=== PATIENT | female | born 1995 | race Caucasian/White ===

== ENCOUNTER 2017-05-07 16:31 | Emergency (ER) | payer SELFPAY ==
[2017-05-07 16:32] VITALS: BMI 22.8
[2017-05-07 16:51] VITALS: BP 99/75; PULSE 87; RESP 20; TEMP 98; O2SAT 98
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
--- NOTE | 2017-05-08 09:01 | US ---
PROCEDURE: OB Pelvic Ultrasound HISTORY: ABDOMINAL PAIN COMPARISON: None available. FINDINGS: UTERUS: Gestational sac: Single intrauterine gestation in variable presentation. Heart rate: 149 bpm. BPD 2.77 cm corresponding to 15 weeks and 0 days of gestational age. HC 9.45 cm corresponding to 14 weeks and 2 days of gestational age. AC 8.05 cm corresponding to 14 weeks and 3 days of gestational age. FL 1.40 cm corresponding to 14 weeks and 1 day of gestational age. age (Ultrasound estimated): 14 weeks and 3 days Zeynep-gestational hemorrhage: None. Date of delivery (Ultrasound estimated) : 11/02/2017 Placenta is fundal and posterior. CERVIX: Long and closed. No cervical abnormality seen. RIGHT OVARY: Not visualized. LEFT OVARY: Not visualized. FREE FLUID: None. OTHER FINDINGS: None. IMPRESSION: Single live intrauterine fetus in variable presentation with mean gestational age of 14 weeks and 3 days. The estimated date of delivery by ultrasound is 11/02/2017. The ultrasound dates correlates with the clinical dates. Placenta is fundal and posterior.
== END 2017-05-07 17:12 | disposition home or self-care (01) ==
LOC: H.ER 16:31
DX: O26.892 Other specified pregnancy related conditions, second trimester (principal); S80.219A Abrasion, unspecified knee, initial encounter; V01.00XA Pedestrian on foot injured in collision with pedal cycle in nontraffic accident, initial encounter; Y92.410 Unspecified street and highway as the place of occurrence of the external cause; Z3A.14 14 weeks gestation of pregnancy

== ENCOUNTER 2017-08-07 11:23 | Emergency (ER) | payer BC ==
[2017-08-07 12:30] VITALS: BMI 26.9
[2017-08-07] MEDS ORDERED: Lactated Ringer's 1,000 ML IV SCH (12:30)
[2017-08-07 13:23] LABS: BASO % 0.4 % (0.0-2.0); EOS % 0.4 % (0.0-4.0); HEMATOCRIT 36.2 % (34.0-47.0); LYMPH # 1.8 K/uL (1.0-4.3); LYMPH % 15.3 % (20.0-40.0); MEAN CELL VOLUME 94.2 fl (81.0-99.0); MEAN CORPUSCULAR HGB CONC 32.9 g/dL (33.0-37.0); MEAN PLATELET VOLUME 8.9 fl (7.2-11.7); MONO # 0.7 K/uL (0.0-0.8); MONO % 5.6 % (0.0-10.0); NEUT # 9.2 K/uL (1.8-7.0); NEUT % 78.3 % (50.0-75.0); NRBC % 0.1 % (0.0-0.0); RED CELL DISTRIBUTION WIDTH 13.6 % (11.5-14.5); WHITE BLOOD COUNT 11.7 K/uL (4.8-10.8)
[2017-08-07 13:34] LABS: ALB/GLOB RATIO 1.2 (1.0-2.1); ALKALINE PHOSPHATASE 57 U/L (38-126); ALT/SGPT 19 U/L (9-52); AST/SGOT 25 U/L (14-36); BILIRUBIN,TOTAL 0.3 mg/dl (0.2-1.3); BLOOD UREA NITROGEN 9 mg/dl (7-17); CALCIUM 8.8 mg/dL (8.4-10.2); CARBON DIOXIDE 23 mmol/L (22-30); CHLORIDE 105 mmol/L (98-107); GFR AFRICAN-AMERICAN > 60; GLUCOSE,RANDOM 69 mg/dL (65-105); POTASSIUM 3.9 MMOL/L (3.6-5.0); SODIUM 137 mmol/l (132-148); TOTAL PROTEIN 6.7 G/DL (6.3-8.2)
[2017-08-07 15:02] LABS: RBC URINE 1 /hpf (0-3); URINE BACTERIA RARE (<OCC); URINE BILIRUBIN NEGATIVE (NEGATIVE); URINE BLOOD NEGATIVE (NEGATIVE); URINE COLOR STRAW (YELLOW); URINE GLUCOSE (UA) NEG (Normal); URINE KETONE NEGATIVE (NEGATIVE); URINE LEUKOCYTE ESTERASE NEG Leu/uL (Negative); URINE PROTEIN NEGATIVE (NEGATIVE); URINE UROBILINOGEN 0.2-1.0 mg/dL (0.2-1.0); WBC URINE 1 /hpf (0-5)
--- NOTE | 2017-08-07 18:13 | OBHP ---
Datetime: 08/07/2017 13:14 IP Adm Impression: , intrauterine Admit Comment, IP Provider: 22yo g1 edc 1/4 by 7wk us presents @ 27.1wk with c/o dizziness, lighthea dedness and h/a x2 days. Pt states dizziness occurs with change in position from sitting to standing . She states lightheadedness occurs while walking or sitting; denies syncope or palpitations She ra autumn h/a 05/11; states is frontal, nonradiating, relieved with tylenol. She also states h/a is not ass oc with aura or visual disturbance. She denies loc, ctxs, srom or vag bleeding. states ob hx has been unremarkable pmhx _ pshx: denies nkda medic: pnv shx: denies etoh, drugs or tobacco use I: 27.1wk Lightheadedness, H/A, and Dizziness P: cbc, cmp, ua iv hydration proper nutrition d/w pt addendum: s: feels better after receiving IV hydration labs nl Vasovagal Episode p: d/c home f/u with dr estrada as sched'd on thursday Return to hospital with worsening headache, syncopal episode, persistent lightheadedness and dizzi ness. return Extremities - PN: Normal Abdomen - PN: Normal Lungs - PN: Normal Neurologic - PN: Normal HEENT - PN: Normal General - PN: Normal Contraction Comments Provider: no Vital Signs Provider: Reviewed; Within Normal Limits IP Chief Complaint: Other NICHD Variability Prov Fetus A: Moderate 6-25bpm NICHD Accel Fetus A IP Provider: 15X15 FHR Category Provider Fetus A: Category I
[2017-08-07 20:43] VITALS: BP 96/46; PULSE 90; RESP 20; TEMP 97.6; O2SAT 100
== END 2017-08-07 16:42 | disposition home or self-care (01) ==
LOC: H.EROB2 11:23
DX: O26.92 Pregnancy related conditions, unspecified, second trimester (principal); R51 Headache; R42 Dizziness and giddiness; Z3A.27 27 weeks gestation of pregnancy
CPT/HCPCS: 80053; 81003; 85025; 99283; J7120

== ENCOUNTER 2017-08-29 09:47 | Emergency (ER) | payer BC, OTHER ==
[2017-08-29 10:02] VITALS: BMI 27.7
[2017-08-29 10:39] LABS: RBC URINE 2 /hpf (0-3); URINE BACTERIA RARE (<OCC); URINE BILIRUBIN NEGATIVE (NEGATIVE); URINE BLOOD NEGATIVE (NEGATIVE); URINE COLOR YELLOW (YELLOW); URINE GLUCOSE (UA) 50 mg/dL (Normal); URINE KETONE NEGATIVE (NEGATIVE); URINE LEUKOCYTE ESTERASE NEG Leu/uL (Negative); URINE PROTEIN NEGATIVE (NEGATIVE); URINE UROBILINOGEN 0.2-1.0 mg/dL (0.2-1.0); WBC URINE 2 /hpf (0-5)
[2017-08-29 16:22] VITALS: BP 100/56; PULSE 87; RESP 16; TEMP 98.2; O2SAT 100
--- NOTE | 2017-08-30 02:42 | OBHP ---
Datetime: 08/29/2017 10:39 IP Adm Impression: , intrauterine IP Admit Plan: Discharge home Admit Comment, IP Provider: 22 yo F, with single IUP at 29.5 weeks consistent with u/s done at 13w2d, presented to [facility] because she noticed blood on toilet paper after wiping after urination. Repo rts good movement, denies contractions, denies loss of fluid, denies further bleeding after not icing blood on toiler paper. OBhx: no prior OB hx. Med hx: states was anemic previously, review of records show CBC from April with Hgb 13.9. Does not take medications for anemia. Surg hx: denies Social hx: denies tobacco, alcohol, drug use Allergies: nkda Medications: PNV care: Dr. Rascon. Next visit: 08/31. ROS: denies burning/pain upon urination, chest pain, shortness of breath, nausea, vomitting Chart reviewed: u/s from 08/19 shows posterior placenta PE: BP 117/76 Gen: alert, oriented, not in acute distress CV: S1,S2 present, RRR Resp: normal resp effort, clear to auscultation bilaterally Abd: gravid, nontender, +BS Extremities: no edema, no tenderness Speculum exam: cervix closed, no blood visualized. A: 22 yo F, , no active vaginal bleeding, no signs or symptoms of pre-term labor. P: Urinalysis - showed leg nitrates, neg leuk esterase, neg blood, all wnl. D/c home, encourage to stay hydrated, encourage to follow up at next visit on Friday 08/31. Discussed with Dr. Subhash [email or web address] OB Hospitalist note: With PGY1, I saw and examined this patient...agree with note. MAHNDO Extremities - PN: Normal Abdomen - PN: Normal Back - PN: Normal Breast - PN: Not Done Lungs - PN: Normal Heart - PN: Normal Thyroid - PN: Not Done Neurologic - PN: Normal HEENT - PN: Normal General - PN: Normal FHR - Baseline A Provider: 130 Comments, ACOG Physical Exam: speculum exam: cervix closed, no blood visualized. Gestation - Est Wks by US: 29.5 EGA AdmitDate IP: 30.2 Vital Signs Provider: Reviewed; Within Normal Limits IP Chief Complaint: Vaginal bleeding NICHD Variability Prov Fetus A: Moderate 6-25bpm Dilatation, Provider: 0 Genitourinary Exam: Normal Datetime: 08/07/2017 13:14 NICHD Decel Fetus A IP Provider: None
--- NOTE | 2017-08-30 02:42 | OBDCSUM ---
Datetime: 08/29/2017 10:44 Disch Activity Restrictions: No sexual activity; Nothing in vagina - [place], tampons, douche Discharge Diagnosis Prov Other: No vaginal bleeding
== END 2017-08-29 10:45 | disposition home or self-care (01) ==
LOC: H.EROB2 09:47
DX: O26.853 Spotting complicating pregnancy, third trimester (principal); Z3A.29 29 weeks gestation of pregnancy

== ENCOUNTER 2017-10-12 14:25 | Emergency (ER) | payer BC ==
[2017-10-12 14:56] VITALS: BMI 32.0
[2017-10-12] MEDS ORDERED: Phenaphthazine-PH Test Paper VI ONE (15:43)
--- NOTE | 2017-10-12 16:18 | OBHP ---
Datetime: 10/12/2017 16:08 IP Adm Impression: , intrauterine ; No Active Labor IP Admit Plan: Observation/Evaluation; Discharge home Admit Comment, IP Provider: 22yo with IUP at 36.1wks reports here today c/o not being sure whet her she is leaking fluid. She denies any VB and feels good movements. [place]- Some irritability FHR- Category 1 , Speculum exam- no gross pooling, Nitrazine Test Negative , Cx- 0/0/-3. Assessment: IUP at 36.1wks Suspected ROM not found NST- Reactive. Plan: Discuused findings with Patient, Labor Instructions given and asked to return she leaks fluid or VB. F/U with Dr Lopez in 3 days. Questions from Pt answered. Pelvic Type - PN: Adequate Abdomen - PN: Normal Back - PN: Normal Lungs - PN: Normal Heart - PN: Normal Neurologic - PN: Normal General - PN: Normal Presentation-Admit: Vertex FHR - Baseline A Provider: 130s Membranes, Provider: Intact Comments, ACOG Physical Exam: ABD: Soft, NT. BS- present UT- Firm, NT Speculum Exam: No Gross pooling, Nitrazine - Negative. Digital Exam: 0/0/-3 Gestation - Est Wks by US: 36.1 Pool Provider: Negative Nitrazine Provider: Positive EGA AdmitDate IP: 88.5 Vital Signs Provider: Reviewed IP Chief Complaint: Suspected ruptured membranes NICHD Variability Prov Fetus A: Moderate 6-25bpm NICHD Accel Fetus A IP Provider: 15X15 FHR Category Provider Fetus A: Category I NICHD Decel Fetus A IP Provider: None Dilatation, Provider: 0 Effacement, Provider: 0 Station, Provider: -3
[2017-10-12 20:44] VITALS: BP 100/53; PULSE 112; RESP 17; TEMP 97.7; O2SAT 100
== END 2017-10-12 16:20 | disposition home or self-care (01) ==
LOC: H.EROB2 14:25 → H.EROB 14:56 → H.EROB2 16:20
DX: O47.03 False labor before 37 completed weeks of gestation, third trimester (principal); Z3A.36 36 weeks gestation of pregnancy; O34.60 Maternal care for abnormality of vagina, unspecified trimester; N89.8 Other specified noninflammatory disorders of vagina

== ENCOUNTER 2017-10-28 11:52 | Inpatient (IN) | payer BC ==
[2017-10-28 11:54] VITALS: BMI 29.5
[2017-10-28] MEDS ORDERED: Oxytocin 30 UNITS in Sodium Chloride 0.9% 500 ML IV SCH (12:00)
[2017-10-28] MEDS ORDERED: Lactated Ringer's 1,000 ML IV SCH ×2 (12:00→16:34)
--- NOTE | 2017-10-28 12:18 | OBADHP ---
Datetime: 10/28/2017 12:15 Admit Comment, IP Provider: 22 yo G1 at 38+ 3 wks in labor Pt admitted to L_D. GBS negative. FHT reactive. H_P dictated, "[id number]" (ES) Extremities - PN: Normal Abdomen - PN: Normal Back - PN: Normal Lungs - PN: Normal Heart - PN: Normal Neurologic - PN: Normal HEENT - PN: Normal General - PN: Normal FHR - Baseline A Provider: 140 Membranes, Provider: Intact Vital Signs Provider: Reviewed; Within Normal Limits IP Chief Complaint: Uterine contractions NICHD Variability Prov Fetus A: Moderate 6-25bpm NICHD Accel Fetus A IP Provider: [id number] FHR Category Provider Fetus A: Category I NICHD Decel Fetus A IP Provider: None Dilatation, Provider: 4 Effacement, Provider: 100 Station, Provider: -1 Genitourinary Exam: Normal EGA AdmitDate IP: 91.0 IP Adm Impression: Term, intrauterine IP Admit Plan: Initiate labor protocol Datetime: 10/12/2017 16:08 Pelvic Type - PN: Adequate Presentation-Admit: Vertex Comments, ACOG Physical Exam: ABD: Soft, NT. BS- present UT- Firm, NT Speculum Exam: No Gross pooling, Nitrazine - Negative. Digital Exam: 0/0/-3 Gestation - Est Wks by US: 36.1 Pool Provider: Negative Nitrazine Provider: Positive Datetime: 08/29/2017 10:39 Breast - PN: Not Done Thyroid - PN: Not Done Datetime: 08/07/2017 13:14 Contraction Comments Provider: no
[2017-10-28] MEDS ORDERED: Fentanyl/Bupivacaine HCl 250 ML EPI ONE ×2 (12:27→16:34)
[2017-10-28 12:35] LABS: BASO # 0.1 K/uL (0.0-0.2); BASO % 0.6 % (0.0-2.0); EOS % 0.4 % (0.0-4.0); LYMPH # 2.3 K/uL (1.0-4.3); LYMPH % 17.7 % (20.0-40.0); MEAN CELL VOLUME 93.3 fl (81.0-99.0); MEAN CORPUSCULAR HEMOGLOBIN 30.6 pg (27.0-31.0); MEAN CORPUSCULAR HGB CONC 32.8 g/dL (33.0-37.0); MEAN PLATELET VOLUME 8.7 fl (7.2-11.7); MONO # 0.6 K/uL (0.0-0.8); MONO % 4.9 % (0.0-10.0); NEUT # 9.8 K/uL (1.8-7.0); NEUT % 76.4 % (50.0-75.0); NRBC % 0.1 % (0.0-0.0); RBC 4.25 Mil/uL (3.80-5.20); RED CELL DISTRIBUTION WIDTH 13.5 % (11.5-14.5); WHITE BLOOD COUNT 12.8 K/uL (4.8-10.8)
[2017-10-28] MEDS ORDERED: Lidocaine 1% Inj (20ml) ONE (14:03)
[2017-10-28] MEDS ORDERED: Benzocaine/Menthol SPRAY TOP PRN ×2 (14:49→16:34)
[2017-10-28] MEDS ORDERED: Oxycodone/Acetaminophen 5/325 mg Tab PO PRN ×2 (14:49→16:34)
--- NOTE | 2017-10-28 15:01 | OBDS ---
DELIVERY PERSONNEL Delivery Doctor: Mode Dunn MD Spooling Supervisor: Carmen Rosario RN MATERNAL INFORMATION Delivery Anesthesia: Epidural Medications in Delivery: pitocin Placenta Cultured: No Maternal Complications: None RN Comments: Atraumatic delivery of a viable babyboy with Lusty cry. Infant transitioned well and w as assigned APGARs of 9/9 Skin to skin initiated immediately Patient tolerated delivery well. Pat ient and infant recoverying well. Provider Comments: Pt progressed to complete and pushed to deliver a viable male infant delivered th rough clear fluid at 14:19. Apgars 9 and 9. Wt 2875 gms, 6#5.4. Mouth and nares bulb-suctioned. I nfant placed on mother's abdomen. Cord clamped and father of the baby cut the cord. Cord blood bernadine ected. Placenta delivered spontaneously intact w/a 3vc at 14:22. Second degree tear repaired w/ 2-o rapide and 3-ov. Bilateral periurethral abrasions hemostatic. Rectum intact. Pt and baby tolerate d the procedure well. EBL 100 mL LABOR SUMMARY EDC: 11/05/2017 00:00 No. Babies in Womb: 1 Attempted: No Labor Anesthesia: Epidural LABOR INFORMATION Onset of Labor: 10/28/2017 07:30 STAGES OF LABOR Stage 3 hrs: 0 Stage 3 min: 3 Total Time in Labor hrs: 6 Total Time in Labor min: 52 BABY A INFORMATION Delivery Date/Time: 10/28/2017 14:19 Method of Delivery: Vaginal Born in Route : No : N/A Forceps: N/A Vacuum Extraction: N/A Shoulder Dystocia : No SHOULDER DYSTOCIA BABY A Infant Delivery Date/Time: 10/28/2017 14:19 PRESENTATION/POSITION BABY A Presentation: Cephalic Cephalic Presentation: Vertex Vertex Position: Left Occipital Anterior Breech Presentation: N/A PLACENTA INFORMATION BABY A Placenta Delivery Time : 10/28/2017 14:22 Placenta Method of Delivery: Spontaneous Placenta Status: Delivered SCORES BABY A Heart Rate 1 min: >100 bpm Resp Effort 1 min: Good Cry Reflex Irritability 1 min: Cough or Sneeze or Pulls Away Muscle Tone 1 min: Active Motion Color 1 min: Body Bliss, Extremities Blue Resuscitation Effort 1 min: N/A SCORE 1 MIN: 9 Heart Rate 5 min: >100 bpm Resp Effort 5 min: Good Cry Reflex Irritability 5 min: Cough or Sneeze or Pulls Away Muscle Tone 5 min: Active Motion Color 5 min: Body Bliss, Extremities Blue Resuscitation Effort 5 min: N/A SCORE 5 MIN: 9 INFANT INFORMATION BABY A Gestational Age at Delivery: 38.0 Gestational Status: Term Infant Outcome : Liveborn Infant Condition : Stable Infant Sex: Male IDENTIFICATION/MEDS BABY A ID Band Number: [id number] ID Band Location: Right Leg; Right Arm WEIGHT/LENGTH BABY A Infant Birthweight (gms): 2875 Weight (lb): 6 Infant Weight (oz): 5 CORD INFORMATION BABY A No. Cord Vessels: 3 Nuchal Cord : N/A Cord Blood Taken: No Infant Suction: Mouth; Nose ASSESSMENT BABY A Infant Complications: None Physical Findings at Delivery: Within Normal Limits Infant Respirations: Appears Normal Care By: Vicki Caldwell Transferred To: Remains with Mother
--- NOTE | 2017-10-28 19:49 | HP ---
HISTORY OF PRESENT ILLNESS: This is a 22-year-old 1 at 38+ 3 weeks with an EDC of 11/08/2017 by 14-week ultrasound, who presents with painful contractions. She denies leaking of fluid, vaginal bleeding, and reports positive movement. All other systems reviewed and negative. Patient's care was with [facility] with Dr. Dunn. This patient received Tdap on 09/09/2017. She received her flu shot on 09/30/2017 and on 10/15/2017, GBS was negative. PAST MEDICAL HISTORY: Healthy. PAST SURGICAL HISTORY: None. MEDICATIONS: vitamins. SOCIAL HISTORY: Patient denies tobacco, alcohol. No illicit drug use. ALLERGIES: NO KNOWN DRUG ALLERGIES. FAMILY HISTORY: Noncontributory. GYNECOLOGIC HISTORY: Patient reports her cycles are 25 to 27 days. She denies any STD's or any abnormal Pap smears. LABS: Blood type, A positive. HIV nonreactive. RPR nonreactive. Hepatitis BsAg negative. Urine culture negative. Panorama was low risk, male fetus. Chlamydia and gonorrhea were negative. Pap was negative. Fragile X negative, SMN1 copy number 2, Cystic fibrosis negative. Hemoglobin electrophoresis normal. Rubella immune. On 09/09/2017, HIV nonreactive, one-hour Glucola was 70. RPR was nonreactive. On 10/15/2017, group B Strep was negative PHYSICAL EXAMINATION: GENERAL: The patient appears very uncomfortable during the contractions. VITAL SIGNS: Afebrile. Vital signs stable. ABDOMEN: Soft, nontender. Gravid. EXTREMITIES: Nontender. HEART: Regular rate and rhythm. LUNGS: Clear to auscultation bilaterally. VAGINAL: 4cm/ 100% effaced/ -1-0 station at 11:43 a.m. MONITORING: Baseline is in the 140s with moderate variability and positive accelerations. Tocodynamometer is difficult to discern. ASSESSMENT AND PLAN: This is a 22-year-old 1 at 38 weeks+ 3 weeks in labor. Patient admitted to labor and delivery. Group B streptococcus negative. heart tracing is reactive. Rosa Dunn MD [facility] # [id number] MTDRomario
[2017-10-29 07:41] LABS: BASO # 0.1 K/uL (0.0-0.2); BASO % 0.4 % (0.0-2.0); EOS # 0.1 K/uL (0.0-0.7); EOS % 0.7 % (0.0-4.0); HEMOGLOBIN 10.5 g/dL (12.0-16.0); LYMPH # 2.8 K/uL (1.0-4.3); LYMPH % 20.3 % (20.0-40.0); MEAN CELL VOLUME 92.9 fl (81.0-99.0); MEAN CORPUSCULAR HEMOGLOBIN 30.8 pg (27.0-31.0); MEAN CORPUSCULAR HGB CONC 33.2 g/dL (33.0-37.0); MEAN PLATELET VOLUME 8.5 fl (7.2-11.7); MONO # 0.8 K/uL (0.0-0.8); MONO % 5.9 % (0.0-10.0); NEUT # 10.2 K/uL (1.8-7.0); NEUT % 72.7 % (50.0-75.0); NRBC % 0.1 % (0.0-0.0); RBC 3.4 Mil/uL (3.80-5.20); RED CELL DISTRIBUTION WIDTH 13.4 % (11.5-14.5)
[2017-10-29] MEDS ORDERED: Lansinoh for Breast Feeding Mothers TP ONE (08:44)
--- NOTE | 2017-10-29 12:11 | OBPPN ---
Datetime: 10/29/2017 12:08 PP Pain Prov: Within normal limits PP Nausea Prov: Denies PP Flatus Prov: Yes PP Breasts Prov: Not Done PP Heart Prov: Normal PP Lungs Prov: Normal PP Abdomen/Uterus Prov: Normal PP Lochia Prov: Not Done PP Vulva/Perineum Prov: Not Done PP CVA Tenderness Prov: Normal PP Extremities Prov: Normal PP Progress Prov: Normal PP Impression Prov: Normal progression PP Plan Prov: Continue present management PP Progress Note Prov: Patient doing well portion of discomfort Uterus firm below the umbilicus day #1 ambulate analgesia as needed suspect discharge Vital Signs Provider PP: Reviewed
[2017-10-30 22:43] VITALS: BP 99/66; PULSE 70; RESP 20; TEMP 98.1; O2SAT 100
== END 2017-10-30 11:30 | disposition home or self-care (01) | DRG 775 ==
LOC: H.EROB2 11:52 → H.EROB 11:59 → H.OB/GYN 16:27
PROVIDERS: ADMIT Obstetrics & Gynecology; ATTEND Obstetrics & Gynecology
PROC: 10E0XZZ Delivery of Products of Conception, External Approach (ICD-10-PCS; principal; 2017-10-28)
PROC: 0KQM0ZZ Repair Perineum Muscle, Open Approach (ICD-10-PCS; 2017-10-28)
PROC: 4A1HXCZ Monitoring of Products of Conception, Cardiac Rate, External Approach (ICD-10-PCS; 2017-10-28)
DX: O70.1 Second degree perineal laceration during delivery (principal); Z37.0 Single live birth; Z3A.38 38 weeks gestation of pregnancy

== ENCOUNTER 2018-06-17 22:06 | Emergency (ER) | payer SELFPAY ==
[2018-06-17 22:07] VITALS: BMI 29.5
[2018-06-17 22:27] VITALS: RESP 18; O2SAT 100
--- NOTE | 2018-06-17 23:21 | ED PDOC ---
HPI: Abdomen Time Seen by Provider: 06/17/18 22:40 Chief Complaint (Nursing): Abdominal Pain Chief Complaint (Provider): Abdominal Pain, History Per: Patient History/Exam Limitations: no limitations Onset/Duration Of Symptoms: Hrs (since 4pm today) Additional Complaint(s): Patient is a 23 y/o female with no significant medical history who presents to the the ED for evaluation of left lower abdominal pain. Patient describes the pain as a cramping pain and rates it as a 6/10, worsening since 16:00 today. Patient reports she took a test earlier this week which was positive. She denies care, but states that since the test she has been taking vitamins. This is her second ; her first was vaginal delivery at x38 weeks with no complications. She denies fever, chills, urinary symptoms, vaginal bleeding, nausea, vomiting, diarrhea, cough, shortness of breath, chest pain. Her last normal menstrual period was May 05. PMD: Mona Abnormal Vaginal Bleeding: No Last Menstral Period: 05/05/18 Past Medical History Reviewed: Historical Data, Nursing Documentation, Vital Signs Vital Signs: Last Vital Signs Temp 97.8 F 06/18/18 02:10 Pulse 84 06/18/18 02:10 Resp 18 06/18/18 02:10 BP 112/67 06/18/18 02:10 Pulse Ox 100 06/21/18 02:14 - Medical History PMH: No Chronic Diseases - Surgical History Surgical History: No Surg Hx - Family History Family History: States: Unknown Family Hx - Social History Current smoker - smoking cessation education provided: No Alcohol: None Drugs: Denies - Home Medications Home Medications: Ambulatory Orders Medication Instructions Recorded Vit No.126/Iron/Folic 1 tab PO DAILY MDD 1 tab 10/28/17 [Prenavite] Acetaminophen [Acetaminophen 8 650 mg PO Q8 PRN #21 tablet.er 06/18/18 Hour] - Allergies Allergies/Adverse Reactions: Allergies Allergy/AdvReac Type Severity Reaction Status Date / Time No Known Allergies Allergy Verified 08/29/17 10:02 Review of Systems ROS Statement: Except As Marked, All Systems Reviewed And Found Negative Constitutional: Negative for: Fever, Chills Cardiovascular: Negative for: Chest Pain Respiratory: Negative for: Cough, Shortness of Breath Gastrointestinal: Positive for: Abdominal Pain. Negative for: Nausea, Vomiting , Diarrhea Genitourinary Female: Negative for: Dysuria, Frequency, Incontinence, Vaginal Bleeding Physical Exam - Reviewed Nursing Documentation Reviewed: Yes Vital Signs Reviewed: Yes - Physical Exam Comments: GENERAL APPEARANCE: Patient is awake, alert, oriented x 3, resting comfortably and in no acute distress. SKIN: Warm, dry; (-) cyanosis. EYES: (-) conjunctival pallor, (-) scleral icterus. ENMT: Mucous membranes moist. Airway patent, (-) stridor. NECK: Supple, FROM CHEST AND RESPIRATORY: (-) rales, (-) rhonchi, (-) wheezes; breath sounds equal bilaterally. Respirations even and nonlabored. HEART AND CARDIOVASCULAR: (-) irregularity ABDOMEN AND GI: Soft (-) distention. Bowel sounds active x4; (+) tenderness in LLQ (-) guarding, (-) rebound (-) CVA tenderness. EXTREMITIES: (-) deformity NEURO AND PSYCH: Mental status as above; (-) focal findings (-) facial asymmetry. Gait steady, speech clear. - Laboratory Results Result Diagrams: 06/17/18 23:44 06/17/18 23:44 Urine POC: Positive Urine dip results: Negative for: Leukocyte Esterase, Blood, Nitrate, Ketones, Glucose, Bilirubin, Protein - ECG O2 Sat by Pulse Oximetry: 100 (RA) Pulse Ox Interpretation: Normal Medical Decision Making Medical Decision Making: Time: 23:10 Impression: Abdominal pain in Initial Plan: --Type and screen --beta-HCG --CMP --CBC w/ diff --ED urine --Tylenol 650 mg PO --US OB Transvag --IV access 2320 Udip reviewed. (+) (-) evidence of UTI 0130 U/S reviewed, radiology report follows EXAM: US , Transvaginal CLINICAL HISTORY: 23 years old, female; Pain; Other: Pelvis pain as per pt. ; Gestational age or lmp: 05/03/18; ; Additional info: Confirm iup (+) home test TECHNIQUE: Real-time transvaginal obstetrical ultrasound of the maternal pelvis and a first trimester with image documentation. Transvaginal imaging was used for better evaluation of the fetus and adnexa. COMPARISON: No relevant prior studies available. FINDINGS: Gestation: Probable gestational sac. No yolk sac. No pole. Mean sac diameter of 0.7 cm, out of range. Uterus/cervix: No subchorionic hemorrhage. Closed cervix. Ovaries: RIGHT ovary: Normal. LEFT ovary: 2.5 x 2.1 x 2.0 cm anechoic lesion. No adnexal masses. Free fluid: No significant free fluid. IMPRESSION: 1. Probable intrauterine , of uncertain viability. Recommend followup. 2. LEFT ovarian cyst. Thank you for allowing us to participate in the care of your patient. Dictated and Authenticated by: Bridger Alfred MD 06/18/2018 12:57 AM Eastern Time ([place] & [place]) Labs reviewed CBC and CMP grossly unremarkable. Beta Quant: 02209.00 Type and Screen: O+ On re-evaluation, patient reports improvement of symptoms. On exam, patient remains AAOx3, in no acute distress. Lungs clear to auscultation, cardiac RRR, abdomen soft, non-tender, repeat neuro exam shows no focal findings. VSS, stable for discharge. Lab/Diagnostic results d/w the patient in great detail. Diagnosis of abdominal pain in first trimester d/w the patient. Based on history, exam and diagnostic results, plan will be for outpatient follow up. Repeat Beta Quant and Sonogram in 48 hours. Return to ED if unable to see OBGYN. Patient instructed to follow-up with pmd / referral provided / the clinic in 1- 2 days without fail. Advised to take medication as prescribed. Return to the emergency room at any time for any new or worsening symptoms. Patient states she fully agrees with and understands discharge instructions. States that she agrees with the plan and disposition. Verbalized and repeated discharge instructions and plan. I have given the patient opportunity to ask any additional questions. Scribe Attestation: Documented by Ravin Guerra, acting as a scribe for Venus Markham PA-C. Provider Scribe Attestation: All medical record entries made by the Scribe were at my direction and personally dictated by me. I have reviewed the chart and agree that the record accurately reflects my personal performance of the history, physical exam, medical decision making, and the department course for this patient. I have also personally directed, reviewed, and agree with the discharge Disposition - Clinical Impression Clinical Impression: Abdominal pain during in first trimester - Patient ED Disposition Is Patient to be Admitted: No Counseled Patient/Family Regarding: Studies Performed, Diagnosis, Need For Followup, Rx Given - Disposition Referrals: Venus Dunn MD [Staff Provider] - Disposition: Routine/Home Disposition Time: 01:49 Condition: STABLE Additional Instructions: Repeat Beta Quant and Sonogram in 48 hours. The emergency medical care you received today was directed towards the acute presenting symptoms. If you were prescribed any medication, please fill it and give as directed. It may take several days for your symptoms to resolve. Return to the Emergency Department at any time if symptoms worsen, do not improve, or if any other problems arise. Please contact your doctor in 2 days for re-evaluation and follow up / or call one of the physicians/clinics you have been referred to that are listed on the Patient Visit Information form that is included in your discharge packet. Bring any paperwork you were given at discharge with you along with any medications to your follow up visit. Our treatment cannot replace ongoing medical care by a primary care provider (PCP) outside of the emergency department. Prescriptions: Acetaminophen [Acetaminophen 8 Hour] 650 mg PO Q8 PRN #21 tablet.er PRN Reason: Pain, Moderate (4-7) Instructions: Care, - The First Month, - The Second Month Forms: Access[employer] (Polish) Print Language: UPPER SORBIAN - POA Present On Arrival: None Results - Lab Results Lab Results: 06/17/18 06/17/18 06/17/18 23:44 23:44 23:44 WBC 8.6 RBC 4.00 Hgb 12.4 Hct 36.4 MCV 91.1 MCH 30.9 MCHC 33.9 RDW 13.2 Plt Count 245 MPV 8.8 Neut % (Auto) 52.3 Lymph % (Auto) 37.7 [place] % (Auto) 7.4 Eos % (Auto) 1.5 Baso % (Auto) 1.1 Neut # (Auto) 4.5 Lymph # (Auto) 3.2 [place] # (Auto) 0.6 Eos # (Auto) 0.1 Baso # (Auto) 0.1 Sodium 137 Potassium 4.0 Chloride 106 Carbon Dioxide 26 Anion Gap 9 L BUN 17 Creatinine 0.7 Est GFR ( Amer) > 60 Est GFR (Non-Af Amer) > 60 Random Glucose 93 Calcium 9.3 Total Bilirubin 0.5 AST 21 ALT 24 Alkaline Phosphatase 52 Total Protein 6.6 Albumin 3.9 Globulin 2.7 Albumin/Globulin Ratio 1.5 Beta HCG, Quant 31266.00 Blood Type A POSITIVE Antibody Screen Negative BBK History Checked Patient has bt
[2018-06-17 23:57] LABS: BASO # 0.1 K/uL (0.0-0.2); BASO % 1.1 % (0.0-2.0); EOS # 0.1 K/uL (0.0-0.7); EOS % 1.5 % (0.0-4.0); HEMOGLOBIN 12.4 g/dL (12.0-16.0); LYMPH # 3.2 K/uL (1.0-4.3); LYMPH % 37.7 % (20.0-40.0); MEAN CELL VOLUME 91.1 fl (81.0-99.0); MEAN CORPUSCULAR HEMOGLOBIN 30.9 pg (27.0-31.0); MEAN CORPUSCULAR HGB CONC 33.9 g/dL (33.0-37.0); MEAN PLATELET VOLUME 8.8 fl (7.2-11.7); MONO # 0.6 K/uL (0.0-0.8); MONO % 7.4 % (0.0-10.0); NEUT # 4.5 K/uL (1.8-7.0); NEUT % 52.3 % (50.0-75.0); NRBC % 0.1 % (0.0-0.0); RED CELL DISTRIBUTION WIDTH 13.2 % (11.5-14.5); WHITE BLOOD COUNT 8.6 K/uL (4.8-10.8)
[2018-06-18 00:07] LABS: ALB/GLOB RATIO 1.5 (1.0-2.1); ALBUMIN 3.9 g/dL (3.5-5.0); ALT/SGPT 24 U/L (9-52); AST/SGOT 21 U/L (14-36); BLOOD UREA NITROGEN 17 mg/dl (7-17); CALCIUM 9.3 mg/dL (8.4-10.2); GFR AFRICAN-AMERICAN > 60; GFR NON-AFRICAN AMERICAN > 60
[2018-06-18 02:10] VITALS: BP 112/67; PULSE 84; TEMP 97.8
--- NOTE | 2018-06-18 09:31 | US ---
PROCEDURE: OB Pelvic Ultrasound HISTORY: confirm IUP () home test COMPARISON: None available. FINDINGS: UTERUS: Possible intrauterine gestational sac pole not visualized. Gestational sac diameter 7 mm, out of range for determination of age. No detectable cardiac activity. Zeynep-gestational hemorrhage: None. Uterus measures 7.5 x 5.1 x 5.5 cm. No mass CERVIX: Long and closed. No cervical abnormality seen. RIGHT OVARY: Measures 2.4 x 1.9 x 2.0 cm. No mass. Normal flow. LEFT OVARY: Measures 3.6 x 2.5 x 2.8 cm. No mass. Normal flow. Simple cyst, 2.0 x 2.1 x 2.5 cm. Presumed physiologic. FREE FLUID: None. OTHER FINDINGS: None. IMPRESSION: Possible early intrauterine gestation with small sac and no recognizable pole. No perigestational hemorrhage. Follow-up with serial beta HCG and transvaginal pelvic ultrasound examination is advised. The preliminary findings for this examination were reported by Ketto at 12:57 a.m. on 06/18/2018. There is concurrence of this report with the preliminary findings.
== END 2018-06-18 02:29 | disposition home or self-care (01) ==
LOC: H.ER 22:06
DX: O34.80 Maternal care for other abnormalities of pelvic organs, unspecified trimester (principal); N83.202 Unspecified ovarian cyst, left side

== ENCOUNTER 2018-06-30 20:19 | Emergency (ER) | payer SELFPAY ==
[2018-06-30 20:19] VITALS: BMI 29.5
[2018-06-30 21:06] VITALS: BP 110/72; PULSE 67; RESP 18; TEMP 98; O2SAT 100
--- NOTE | 2018-06-30 21:47 | ED PDOC ---
HPI: Psych/Substance Abuse Time Seen by Provider: 06/30/18 21:16 Chief Complaint (Nursing): Anxiety Chief Complaint (Provider): anxiety History Per: Patient History/Exam Limitations: no limitations Onset/Duration Of Symptoms: Days (3), Waxing/Waning Additional Complaint(s): 23 y/o female, of unknown duration, presents for evaluation of anxiety x 3 days. Patient states she will randomly have episodes where she gets "anxious", then will start to hyperventilate, have chest tightness, and start crying out of no where. Patient states she was here 12 days ago and the ultrasound did not give an estimated age of but she hasn't been able to follow up with her [employer] due to insurance issues. Patient reports ongoing pelvic pain and nausea. Denies fever, headache, dizziness, chest pain, shortness of breath, palpitations, urinary symptoms, vaginal bleeding/discharge , leg pain/swelling, recent travel, suicidal/homicidal ideations. LMP "early May" Against Medical Advice - AMA Patient Left Against Medical Advice: The patient declines admission to the hospital and wishes to leave the Emergency Department. This action is against my medical advice. This decision was made with informed refusal. The patient was told that admission to the hospital is necessary. Explanation of the reasons why were discussed. The risks of leaving were explained to the patient and include, but are not limited to, worsening of known or currently unknown conditions, permanent disability and from undiagnosed or untreated conditions. The patient has the capacity to make this informed decision and understands my explanation of the current medical problem and risks of leaving. The patient voluntarily accepts these risks and signed an AMA form documenting our conversation. The patient was given the opportunity to ask questions and reconsider. The patient was encouraged to return to the Emergency Department at any time for further care. Past Medical History Reviewed: Historical Data, Nursing Documentation, Vital Signs Vital Signs: Last Vital Signs Temp 98 F 06/30/18 21:04 Pulse 67 06/30/18 21:04 Resp 18 06/30/18 21:04 BP 110/72 06/30/18 21:04 Pulse Ox 100 06/30/18 21:04 - Medical History PMH: No Chronic Diseases Denies: Depression, Diabetes, HTN - Surgical History Surgical History: No Surg Hx - Family History Family History: States: Unknown Family Hx - Immunization History Hx Tetanus Toxoid Vaccination: Yes Hx Influenza Vaccination: No Hx Pneumococcal Vaccination: No - Home Medications Home Medications: Ambulatory Orders Medication Instructions Recorded Vit No.126/Iron/Folic 1 tab PO DAILY MDD 1 tab 10/28/17 [Prenavite] Acetaminophen [Acetaminophen 8 650 mg PO Q8 PRN #21 tablet.er 06/18/18 Hour] - Allergies Allergies/Adverse Reactions: Allergies Allergy/AdvReac Type Severity Reaction Status Date / Time No Known Allergies Allergy Verified 06/30/18 21:04 Review of Systems ROS Statement: Except As Marked, All Systems Reviewed And Found Negative Gastrointestinal: Positive for: Nausea, Abdominal Pain Psych: Positive for: Anxiety Physical Exam - Reviewed Nursing Documentation Reviewed: Yes Vital Signs Reviewed: Yes - Physical Exam Appears: Positive for: Well, Non-toxic, No Acute Distress Head Exam: Positive for: ATRAUMATIC, NORMAL INSPECTION, NORMOCEPHALIC Skin: Positive for: Normal Color Eye Exam: Positive for: Normal appearance ENT: Positive for: Normal ENT Inspection Cardiovascular/Chest: Positive for: Regular Rate, Rhythm Respiratory: Positive for: Normal Breath Sounds Gastrointestinal/Abdominal: Positive for: Bowel Sounds, Soft, Tenderness (llq, suprapubic) Back: Positive for: Normal Inspection Extremity: Positive for: Normal ROM Neurologic/Psych: Positive for: Alert, Oriented (x3) - ECG O2 Sat by Pulse Oximetry: 100 - Progress ED Course And Treament: labs, u/s, ekg Patient refusing testing at this time; states she needs to take her baby home. Patient was advised she will need to sign out against medical advice, and risks of doing so. Patient AAOx3; demonstrates full competency in making medical decisions and still wishes to sign out. Advised to follow up dermatopathologist tomorrow Return precautions given Disposition - Clinical Impression Clinical Impression: Abdominal pain during , Anxiety, Left against medical advice - Patient ED Disposition Is Patient to be Admitted: No - Disposition Referrals: Venus Dunn MD [Family Provider[facility] Disposition: Against Medical Advice Disposition Time: 21:55 Condition: STABLE Instructions: Leaving Against Medical Advice
== END 2018-06-30 22:02 | disposition left against medical advice (07) ==
LOC: H.ER 20:19
DX: O26.90 Pregnancy related conditions, unspecified, unspecified trimester (principal); R10.2 Pelvic and perineal pain; F41.9 Anxiety disorder, unspecified